=== PATIENT | male | born 1975 | race Caucasian/White ===

== ENCOUNTER 2020-06-16 17:39 | Emergency (ER) | payer OTHER, BC ==
--- NOTE | 2020-06-16 20:10 | EDM.PDOC ---
ED HPI GENERAL MEDICAL PROBLEM - General Chief Complaint: Upper Extremity Injury/Pain Stated Complaint: R INDEX FINGER INJURY Time Seen by Provider: 06/16/20 20:09 - History of Present Illness INITIAL COMMENTS - FREE TEXT/NARRATIVE: 5-year-old male presents the emergency room with right index finger injury. Patient was at work and was using a large pipe wrench with a cheater bar on it the pipe he was turning dropped the cheater bar slid forward pinching his right index finger between the judo bar and the adjustment piece on the pipe wrench. Patient denies any other injury associate with this most unfortunate event patient is uncertain of his last tetanus shot he knows it was over 10 years ago. Right Finger-Ring Pain Score (Numeric/FACES): 6 - Related Data Allergies Allergy/AdvReac Type Severity Reaction Status Date / Time No Known Allergies Allergy Verified 06/16/20 18:38 Home Meds: Home Meds . [No Known Home Meds] 09/03/15 [History] Past Medical History - Past Health History Medical/Surgical History: Denies Medical/Surgical History Social & Family History - Tobacco Use Tobacco Use Status *Q: Current Every Day Tobacco User Years of Tobacco use: 15 Packs/Tins Daily: 0.5 - Caffeine Use Caffeine Use: Reports: None - Recreational Drug Use Recreational Drug Use: No Review of Systems - Review of Systems Review Of Systems: See Below Constitutional: Reports: No Symptoms Respiratory: Reports: No Symptoms Cardiovascular: Reports: No Symptoms GI/Abdominal: Reports: No Symptoms ED EXAM, GENERAL - Physical Exam Exam: See Below Exam Limited By: No Limitations General Appearance: Alert, No Apparent Distress Head: Atraumatic, Normocephalic Neck: Normal Inspection, Supple, Non-Tender, Full Range of Motion Respiratory/Chest: No Respiratory Distress, Lungs Clear, Normal Breath Sounds Cardiovascular: Regular Rate, Rhythm, No Edema, No Murmur Extremities: Other (Damage to the right index finger looks pretty disrupted in the area of the middle phalanx. Especially the dorsal aspect. He has a regular stellate laceration. The patient has a flexed DIPJ and cannot extend this. Sensation the distal phalanx appears to be fairly well intact ) Neurological: Other (Neurologic function of the dorsum of the finger distal to the laceration is blunted) Course - Vital Signs Last Recorded V/S: Last Vital Signs Temp 36.8 C 06/16/20 18:36 Pulse 86 06/16/20 18:36 Resp 16 06/16/20 18:36 BP 162/100 H 06/16/20 18:36 Pulse Ox 97 06/16/20 18:36 - Orders/Labs/Meds Orders: Active Orders 24 hr Category Date Time Status Fingers Second Digit Rt F6 [CR] Stat Exams 06/16/20 18:56 Stop Req Forearm 2V Rt [CR] Stat Exams 06/16/20 20:06 Stop Req Hand Comp Min 3V Rt [CR] Stat Exams 06/16/20 20:06 Stop Req - Re-Assessments/Exams Free Text/Narrative Re-Assessment/Exam: 06/16/20 20:[address] Mariee on-call orthopedic surgeon at [facility] in [place]. The patient be transferred by his employer. He will not have anything to eat or drink his last drink was around 5:00 Mountain time his last meal was around 1:00 Mountain time. His tetanus will be updated and he will receive 2 g Ancef prior to leaving. Departure - Departure Time of Disposition: 20:55 Disposition: DC/Tfer to [facility] 02 Clinical Impression: Open fracture of middle phalanx of right index finger - Discharge Information Referrals: PCP,None [Primary Care Provider] - Forms: ED Department Discharge Additional Instructions: Go straight to [facility] emergency room in [facility]. Do not have anything to eat or drink in route. Your tetanus was updated today. You were given strong antibiotics through the your vein prior to leaving the emergency room here. Sepsis Event Note (ED) - Evaluation Sepsis Screening Result: No Definite Risk - Focused Exam Vital Signs: Vital Signs Temp Pulse Resp BP Pulse Ox 06/16/20 18:36 36.8 C 86 16 162/100 H 97 - My Orders Last 24 Hours: My Active Orders 06/16/20 18:56 Fingers Second Digit Rt F6 [CR] Stat 06/16/20 20:06 Forearm 2V Rt [CR] Stat Hand Comp Min 3V Rt [CR] Stat - Assessment/Plan Last 24 Hours: My Active Orders 06/16/20 18:56 Fingers Second Digit Rt F6 [CR] Stat 06/16/20 20:06 Forearm 2V Rt [CR] Stat Hand Comp Min 3V Rt [CR] Stat
[2020-06-16] MEDS ORDERED: Diphtheria,Pertussis(Acell),Tetanus Vaccine 0.5 ML Syringe IM ONE (20:45)
[2020-06-16] MEDS ORDERED: ceFAZolin 1 GM in Premix Bag 1 BAG IV ONE ×2 (20:45→20:48)
--- NOTE | 2020-06-16 20:58 | CR ---
Right second finger: 3 view centered to the right second finger were obtained. Comminuted fracture is identified within the middle phalanx of the right second finger. There is abnormal alignment being seen with several displaced bony fragments. Several linear foreign body densities are seen within soft tissues at the level of the proximal phalanx within the second finger. No additional abnormality is appreciated. Impression: 1. Comminuted and displaced fracture involving the middle phalanx of the right second finger. 2. Several small metallic foreign bodies projected more proximally within the second finger which may be old. Diagnostic code #3
[2020-06-16 21:29] VITALS: BP 144/105; PULSE 69
== END 2020-06-16 21:25 ==
LOC: JD.ED 17:39
DX: S62.620B Displaced fracture of middle phalanx of right index finger, initial encounter for open fracture (principal); Z72.0 Tobacco use; Z23 Encounter for immunization; W20.8XXA Other cause of strike by thrown, projected or falling object, initial encounter; Y99.0 Civilian activity done for income or pay
CPT/HCPCS: 73140; 90471; 90715; 96365; 99284; J0690